=== PATIENT | female | born 1960 | race Caucasian/White ===

== ENCOUNTER 2019-03-27 01:23 | Day surgery (SDC) | payer BC, SELFPAY ==
[2019-03-14 16:03] VITALS: BMI 54.7
--- NOTE | 2019-03-27 07:27 | PM.HPGS ---
History of Present Illness History of Present Illness Consent: Risks, benefits, and alternatives have been discussed and questions answered. Patient agrees to proceed with procedure. Chief complaint: Abnormal Pelvic Ultrasound Narrative: Sara Duarte is a 58 year old female new to me in February. Patient states she has never stopped her cycles. Longest without bleeding was 2 months occasionally. Not heavy but occurring mostly monthly. Pelvic u/s done and endometrium 2.9 cm, fibroids, and cystic appearing endometrium. LH and FSH are 33 and 13 respectively which are not diagnostic of menopause. Recommend to evaluate endometrium with hysteroscopy, D&C, and possible myosure. Risks of infection, bleeding, perforation, and fluid imbalance were reviewed. Patient voiced understanding and agrees to proceed. [facility] Past Medical History Medical History (Updated 03/27/19 @ 07:37 by Magali Harley MD) HTN (hypertension) Hypothyroid Left ventricular enlargement MVP (mitral valve prolapse) PCOS (polycystic ovarian syndrome) Trauma in childhood Type 2 diabetes mellitus Surgical History Surgical History (Updated 03/27/19 @ 07:34 by Magali Harley MD) S/P laparoscopy Meds Home Medications and Allergies Home Medications Medication Instructions Recorded Confirmed Type levothyroxine [Synthroid] 75 mcg PO DAILY 03/14/19 03/14/19 History Allergies Allergy/AdvReac Type Severity Reaction Status Date / Time ibuprofen Allergy Severe Swelling Verified 03/27/19 07:34 of Lip/Tongue/Throat Exam Const: General: healthy appearing and alert Nutritional Appearance: obese (BMI 54.9) morbidly obese Orientation/consciousness: patient oriented x3 Resp: Effort & Inspection: normal respiratory effort Auscultation: clear to auscultation bilaterally Cardio: Rate: regular rate Rhythm: regular rhythm GI: GI Palp: Yes Soft to palpation, No Tenderness to palpation present (GI) and No Palpable mass present : External Female Exam: normal external appearance Speculum Exam - Vagina: normal appearance of the vagina and abnormal vaginal discharge (villanueva) Speculum Exam - Cervix: normal appearance of the cervix (barely visible with XL virginal speculum) Bimanual exam- vagina & uterus: other (suboptimal due to panus and narrow vaginal canal) Bimanual Exam- Adnexa, other: No adnexal tenderness Neuro: General: patient oriented x3 Assessment and Plan Assessment and plan (1) Abnormal pelvic ultrasound: Code(s): R93.89 - Abnormal findings on diagnostic imaging of other specified body structures Status: Acute Assessment and Plan: Plan to evaluate with hysteroscopy, D&C, and possible myosure if able. Concern over patient size and depth of cervix as well as the narrow vaginal canal were expressed to patient.
[2019-03-27 07:47] VITALS: BP 148/92; PULSE 59; RESP 18; TEMP 36.4; O2SAT 95
[2019-03-27] MEDS: LACTATED RINGERS 1,000 ML 30 ML IV CONT ×2 (08:00→10:09)
--- NOTE | 2019-03-27 08:04 | WPDANESEPPF ---
Anes - Initial Pre Proc Eval Procedure: Operation Date: 03/27/19 08:30 Proposed Procedures p Hysteroscopy Dilation and Curettage - Magali Harley MD Date/Time: 03/27/19 08:04 Surgeon: Magali Harley MD Pre Op Diagnosis: Abnormal Pelvic Ultrasound Patient Data Age: 58 Gender: F Height: 1.68 m Weight: 155 kg Last Vital Signs Temp 36.4 C L 03/27/19 07:47 Pulse 59 L 03/27/19 07:47 Resp 18 03/27/19 07:47 BP 148/92 H 03/27/19 07:47 Pulse Ox 95 03/27/19 07:47 Allergies Allergy/AdvReac Type Severity Reaction Status Date / Time ibuprofen Allergy Severe Swelling Verified 03/27/19 07:34 of Lip/Tongue/Throat Home Medications Medication Instructions Recorded Confirmed Type levothyroxine [Synthroid] 75 mcg PO DAILY 03/14/19 03/27/19 History Patient hx anesthesia problems: none Family hx anesthesia problems: none [facility] Past Medical History Medical History (Updated 03/27/19 @ 07:37 by Magali Harley MD) HTN (hypertension) Hypothyroid Left ventricular enlargement MVP (mitral valve prolapse) PCOS (polycystic ovarian syndrome) Trauma in childhood Type 2 diabetes mellitus Surgical History Surgical History (Updated 03/27/19 @ 07:34 by Magali Harley MD) S/P laparoscopy Anes - Eval Final PreProcedure Day of Procedure 03/27/19 08:04 Patient weight: super morbidly obese Heart: regular rate and rhythm Lungs: clear to auscultation and normal air movement Airway: Mallampati scale class III Neurological: alert and oriented Last oral intake: >/= 8 hours ASA classification: III Emergent: no Anesthetic plan: proceed Anesthesia type and monitoring: general (GIVS/LMA) and standard monitoring Informed Consent: The patient's anesthetic plan and its attendant risks and benefits were discussed with the patient/family/POA. Questions were solicited and answers provided to the satisfaction of the patient/family/POA.
--- NOTE | 2019-03-27 09:09 | SUR.OPER ---
EBL:5CC, HYSTEROSCOPY FLUID: 3000CC OUT OF BAG, 2900CC COLLECTED
--- NOTE | 2019-03-27 09:15 | PM.OP ---
Procedure Note - Brief Procedure Note - Brief Date of procedure: 03/27/19 Pre-op diagnosis: Abnormal Pelvic Ultrasound Post-op diagnosis: same Procedure performed: D&C hysteroscopy with myosure resection of fibroids Anesthesia: GLMA, MAC and local Surgeon: Magali Harley MD Estimated blood loss (mL): 5 Drains: No Packing: No Pathology: yes (shavings and curettings of endometrium) Complications: No immediate complications Condition: stable Disposition: PACU Findings: uterus 10 cm; multiple fibroids noted
[2019-03-27 09:24] VITALS: BP 139/73; PULSE 65; RESP 20; O2SAT 94
[2019-03-27 10:15] VITALS: BP 165/90; PULSE 52; RESP 20
--- NOTE | 2019-03-27 10:25 | OP_ITS ---
DATE OF PROCEDURE: 03/27/2019 PREOPERATIVE DIAGNOSIS: Abnormal pelvic ultrasound. POSTOPERATIVE DIAGNOSIS: Abnormal pelvic ultrasound. PROCEDURE: D and C, hysteroscopy with MyoSure resection of fibroids. ANESTHESIA: MAC and local with an LMA. ESTIMATED BLOOD LOSS: 5 cc. PATHOLOGY: Endometrial shavings and curettings. DESCRIPTION OF PROCEDURE: The patient was taken to the operating room, placed under anesthesia in the dorsal lithotomy position. The bivalve speculum was placed in the vagina. The cervix was easily visualized, grasped with the tenaculum, and injected with 1% lidocaine in each quadrant. The uterus was sounded to 10 cm. The cervix was serially dilated with Hegar. The diagnostic hysteroscope was placed. Multiple fibroids were noted including 1 that is attached anteriorly and posteriorly. The visible endometrium does appear normal. The fibroid did do appear very vascular. The hysteroscope was removed. The MyoSure device was opened and placed. Under direct visualization, the fibroids were removed. Near the end of the procedure, the visualization became very poor despite 1 L of irrigation due to bleeding. The prior clear visual field did reveal the majority of the endometrium to be smooth and no further lesions were noted. The decision was made to stop the MyoSure resection, as there was no further visualization. The hysteroscope was removed. The medium sharp curette was used to sharply curette the endometrium until a good uterine cry was noted in all areas. Minimal material was obtained. During this process, all instruments were removed. The patient was taken to Recovery in stable condition. [place] [facility] MT: Radha
== END 2019-03-27 10:34 | disposition home or self-care (01) ==
PROVIDERS: PCP Physician Assistant; Visit Provider Obstetrics & Gynecology Gynecology
PROC: 0U5B8ZZ Destruction of Endometrium, Via Natural or Artificial Opening Endoscopic (ICD-10-PCS; CPT 58563; principal; 2019-03-27 08:30)
DX: C54.1 Malignant neoplasm of endometrium (principal); I10 Essential (primary) hypertension; E28.2 Polycystic ovarian syndrome; E03.9 Hypothyroidism, unspecified; I34.1 Nonrheumatic mitral (valve) prolapse; E11.9 Type 2 diabetes mellitus without complications; E66.01 Morbid (severe) obesity due to excess calories; Z68.43 Body mass index [BMI] 50.0-59.9, adult
CPT/HCPCS: 58561; 88305; J2250; J2704; J3010; J7030; J7120